=== PATIENT | female | born 1995 | race Caucasian/White ===

== ENCOUNTER 2018-04-14 14:19 | Outpatient (REF) | payer OTHER, SELFPAY ==
--- NOTE | 2018-04-14 13:00 | SKI_PTH ---
PATIENT: Emily Flowers LOC: [facility] U#:[id number] AGE/SX: 22/F ROOM: RE04/14/[address]: Smita Tobin MD : 1995 BED: DIS: 04/14/2018 SPEC #: [id number] RECD: 04/14/18 17:15 STATUS: RICARDO RELoulou #: [id number] KYLE: 04/14/18 13:[address]: Smita Tobin DEPT: Surgical Specimen RECD BY: Brittaney Gamez ENTERED: 04/14/18 17:16 SP TYPE: WILDER CAZARES DR: FLORI Cobb Tissues: 1 - SKIN CYST/TAG/DEBRIDEMENT Procedures: SKIN BIOPSY LEVEL 3 Comments: [id number]
== END 2018-04-14 14:39 ==
LOC: LBN 14:19
PROVIDERS: PCP Nurse Practitioner Family; Visit Provider Surgery
DX: L72.11 Pilar cyst (principal); L72.8 Other follicular cysts of the skin and subcutaneous tissue
CPT/HCPCS: 88304; 88305

== ENCOUNTER 2018-07-05 17:57 | Outpatient (REF) | payer OTHER, SELFPAY ==
[2018-07-07 14:58] LABS: Chlamydia Result Negative; GC Result Negative; Specimen Description CERVIX
== END 2018-07-05 18:17 ==
LOC: LBN 17:57
PROVIDERS: PCP Nurse Practitioner Family; Visit Provider Nurse Practitioner Women's Health
DX: Z11.3 Encounter for screening for infections with a predominantly sexual mode of transmission (principal)
CPT/HCPCS: 87491; 87591

== ENCOUNTER 2018-08-16 17:16 | Outpatient (REF) | payer OTHER, SELFPAY ==
--- NOTE | 2018-08-16 15:20 | PAPFT_PTH ---
PATIENT: Emily Flowers LOC: [facility] U#:[id number] AGE/SX: 23/F ROOM: RE08/16/[address]: Cait Bejarano NP : 1995 BED: DIS: 08/16/2018 SPEC #: [id number] RECD: 08/16/18 17:36 STATUS: RICARDO KENDRICK #: [id number] KYLE: 08/16/18 15:[address]: Cait Bejarano NP DEPT: [facility] Cytology RECD BY: Brittaney Gamez ENTERED: 08/16/18 17:37 SP TYPE: PAPFT DEBORA DR: Coni Victoria, FLORI Tissues: 1 - CX/ENDOCX FOR PAP SMEARS Procedures: PAP THIN PREP/[facility] Screening Comments: [id number]
== END 2018-08-16 17:36 ==
LOC: LBN 17:16
PROVIDERS: PCP Nurse Practitioner Family; Visit Provider Nurse Practitioner Women's Health
DX: Z12.4 Encounter for screening for malignant neoplasm of cervix (principal)
CPT/HCPCS: 88142

== ENCOUNTER 2019-09-17 09:37 | Outpatient (CLI) | payer OTHER, SELFPAY ==
[2019-09-17 12:52] LABS: Anion Gap 8.9 mmol/L (3-11); BUN 11 mg/dL (7-18); CO2 27.1 mmol/L (21.0-32.0); CREATININE 0.65 mg/dL (0.55-1.02); Calcium 8.9 mg/dL (8.5-10.1); Chloride 105 mmol/L (98-107); FREE T4 0.91 ng/dL (0.76-1.46); Glucose 85 mg/dL (74-106); Potassium 4.3 mmol/L (3.5-5.1); Sodium 141 mmol/L (136-145); TSH 0.83 uIU/mL (0.36-3.74)
== END 2019-09-17 09:57 ==
PROVIDERS: PCP Nurse Practitioner Family; Visit Provider Nurse Practitioner Family
DX: R63.5 Abnormal weight gain (principal)
CPT/HCPCS: 36415; 80048; 84439; 84443

== ENCOUNTER 2020-07-30 19:11 | Outpatient (REF) | payer OTHER, SELFPAY ==
[2020-07-30 22:31] LABS: Bilirubin Negative (Negative); Blood Moderate (Negative); Clarity Sl Cloudy (Clear); Glucose Negative (Negative); Ketones Negative (Negative); Leukocyte Esterase Trace (Negative); Nitrite Negative (Negative); Specific Gravity 1.025 (1.005-1.025); Urobilinogen 0.2 EU/dL (Up TO 0.2); pH 7.5 (5-8)
[2020-07-30 23:06] LABS: Epithelial Cells Rare HPF (Negative); RBC 20-50 HPF (0-2)
[2020-07-30 23:07] LABS: Bacteria Negative HPF (Negative); C & S Indicated? C&S Done As Ordered; Casts Negative LPF (Negative); Crystals Rare Triple Phos HPF (Negative); Mucus Negative (Negative)
== END 2020-07-30 19:31 ==
LOC: LBN 19:11
PROVIDERS: PCP Nurse Practitioner Family; Visit Provider Physician Assistant
DX: N39.0 Urinary tract infection, site not specified (principal); R80.9 Proteinuria, unspecified
CPT/HCPCS: 87077; 81003; 81015; 87086

== ENCOUNTER 2020-08-15 19:23 | Outpatient (REF) | payer OTHER, SELFPAY ==
[2020-08-15 19:20] LABS: Bilirubin Negative (Negative); Blood Negative (Negative); Clarity Clear (Clear); Glucose Negative (Negative); Ketones Negative (Negative); Leukocyte Esterase Negative (Negative); Nitrite Negative (Negative); Specific Gravity 1.025 (1.005-1.025); Urobilinogen 0.2 EU/dL (Up TO 0.2); pH 6.5 (5-8)
== END 2020-08-15 19:43 ==
LOC: NCHCN 19:23
PROVIDERS: PCP Nurse Practitioner Family; Visit Provider Physician Assistant
DX: R80.9 Proteinuria, unspecified (principal)
CPT/HCPCS: 81003

== ENCOUNTER 2021-06-24 02:37 | Outpatient (CLI) | payer SELFPAY ==
[2021-06-24 14:35] LABS: Abs Immature Grans 0.02 10^3/uL (0.0-0.06); Absolute Basophil Count 0.07 10^3/uL (0.0-0.2); Absolute Eosinophil Count 0.13 10^3/uL (0.0-0.7); Absolute Lymphocyte Count 2.34 10^3/uL (1.2-3.4); Absolute Monocyte Count 0.67 10^3/uL (0.1-0.8); Absolute Neutrophil Count 4.48 10^3/uL (1.2-6.7); Basophils % 0.9; Eosinophils % 1.7; HCT 39.6 % (36.0-46.0); HGB 12.5 g/dL (11.2-15.7); Immature Grans % 0.3; Lymphocytes % 30.4; MCH 27.8 pg (27.0-33.0); MCHC 31.6 % (32.0-36.0); MCV 88.2 fL (80-95); MPV 8.4 fL (8.0-11.0); Monocytes % 8.7; Nucleated RBC 0 %; Platelet Count 338 10^3/uL (130-400); RBC 4.49 10^6/uL (3.93-5.22); RDW 13.3 % (11.7-14.6); RDW-SD 43.2 fL; WBC 7.71 10^3/uL (4.4-10.8)
[2021-06-24 14:39] LABS: ESR 6 mm/hr (0-20)
[2021-06-24 15:38] LABS: C-Reactive Protein 0.42 mg/dL (0.0-0.3); TSH (W/Ref FT4) 0.98 uIU/mL (0.36-3.74)
[2021-06-25 00:56] LABS: Vitamin D 25 Total 19.8 ng/mL (30-100)
[2021-06-25 09:33] LABS: Lyme Ab w Rflx to Lyme Confirm Negative (Negative)
[2021-06-25 22:18] LABS: Anaplasma phagocytophilum Negative (Negative); B. miyamotoi PCR Negative (Negative); Babesia divergens/MO-1 Negative (Negative); Babesia duncani Negative (Negative); Babesia microti Negative (Negative); Ehrlichia chaffeensis Negative (Negative); Ehrlichia ewingii/canis Negative (Negative); Ehrlichia muris eauclairensis Negative (Negative)
[2021-06-29 13:19] LABS: IgA 121 mg/dL (85-499); Interpretation (See Note); Tissue Transglutaminase IgA <1.2 U/mL (<4.0)
== END 2021-06-24 02:38 | disposition home or self-care (01) ==
LOC: LBO 02:37
PROVIDERS: PCP Nurse Practitioner Family; Visit Provider Nurse Practitioner Family
DX: R53.82 Chronic fatigue, unspecified (principal)
CPT/HCPCS: 36415; 82306; 82784; 83516; 85652; 87798; 84443; 85025; 86140; 86618

== ENCOUNTER 2022-01-15 12:08 | Outpatient (CLI) | payer BC, SELFPAY ==
[2022-01-15 13:26] LABS: HCG Quant, Pregnancy < 1 mIU/mL (1-3)
== END 2022-01-15 12:09 | disposition home or self-care (01) ==
LOC: LBO 12:08
PROVIDERS: PCP Nurse Practitioner Family; Visit Provider Family Medicine
DX: Z32.01 Encounter for pregnancy test, result positive (principal)
CPT/HCPCS: 36415; 84702

== ENCOUNTER 2023-03-17 16:15 | Outpatient (REF) | payer BC, SELFPAY ==
[2023-03-17 21:00] LABS: Bilirubin Negative (Negative); Blood Large (Negative); Clarity Sl Cloudy (Clear); Glucose Negative (Negative); Ketones Negative (Negative); Leukocyte Esterase Small (Negative); Nitrite Negative (Negative); Urobilinogen 0.2 mg/dL (Up to 0.2)
[2023-03-17 21:16] LABS: Bacteria Negative HPF (Negative); C & S Indicated? No/Sq. Contamination; Crystals Negative HPF (Negative); Epithelial Cells Moderate HPF (Negative); Mucus Trace (Negative); RBC >50 HPF (0-2); WBC 20-50 HPF (0-5)
== END 2023-03-17 16:16 | disposition home or self-care (01) ==
LOC: LBN 16:15
PROVIDERS: PCP Nurse Practitioner Family; Visit Provider Nurse Practitioner Family
DX: R35.0 Frequency of micturition (principal); R30.0 Dysuria; R31.9 Hematuria, unspecified; Z3A.31 31 weeks gestation of pregnancy
CPT/HCPCS: 81003; 81015